=== PATIENT | male | born 1990 | race Caucasian/White ===

== ENCOUNTER 2016-11-08 14:44 | Emergency (ER) | payer SELFPAY ==
[~2016-11-08] VITALS: Ht 180.3 cm; Wt 74.0 kg
[~2016-11-08 14:44] MED LIST: IBUP800T23 PO
[2016-11-08 14:49] VITALS: BP 118/59; PULSE 56; RESP 16; TEMP 97.5; O2SAT 99
[2016-11-08] MEDS ORDERED: SODIUM CHLOR 0.9% 1000 ML INJ 1,000 ML IV SCH (16:22)
[2016-11-08] MEDS ORDERED: KETOROLAC TROMETHAMINE 30 MG/ML (IVP) VIAL IVP ONE (16:30)
[2016-11-08] MEDS ORDERED: SODIUM CHLORIDE 0.9% FLUSH 10 ML FLUSH IV FLUSH PRN (16:30)
[2016-11-08 16:44] VITALS: O2SAT 98
[2016-11-08 16:46] LABS: AUTOMATED NEUTROPHIL # 4.4 TH/MM3 (1.8-7.7); BASOPHIL % 0.6 % (0.0-2.0); EOSINOPHIL % 0.6 % (0.0-4.0); HEMATOCRIT 45.1 % (39.0-51.0); HEMO FLAGS DIFF FINAL; LYMPH % 24.9 % (9.0-44.0); LYMPHOCYTE # 1.6 TH/MM3 (1.0-4.8); MEAN CELL VOLUME 83.7 FL (80.0-100.0); MEAN CORPUSCULAR HEMOGLOBIN 27.7 PG (27.0-34.0); MEAN CORPUSCULAR HGB CONC 33.1 % (32.0-36.0); MONO % 7.4 % (0.0-8.0); NEUT % 66.5 % (16.0-70.0); PLATELET COUNT 282 TH/MM3 (150-450); RED BLOOD COUNT 5.38 MIL/MM3 (4.50-5.90); WHITE BLOOD COUNT 6.5 TH/MM3 (4.0-11.0)
[2016-11-08 16:47] VITALS: BP 113/59; PULSE 51; RESP 18; O2SAT 100
[2016-11-08 16:48] LABS: BLOOD, URINE NEG (NEG); GLUCOSE,URINE NEG (NEG); KETONE, URINE 15 mg/dL (NEG); NITRITE,URINE NEG (NEG)
[2016-11-08 16:53] LABS: URINE COLOR YELLOW (YELLW/STRAW)
[2016-11-08 16:54] LABS: COMMENT (UR) CULT NOT INDICATED; CULTURE IF INDICATED CULT NOT INDICATED; MUCUS URINE MOD /lpf (OCC); RBC, URINE 0-3 /hpf (0-3); SQUAMOUS EPITHELIAL CELL URINE 0-5 /hpf (0-5); WBC, URINE 0-2 /hpf (0-5)
[2016-11-08 17:03] LABS: CHLORIDE 105 MEQ/L (98-107); SODIUM (NA) 138 MEQ/L (136-145)
[2016-11-08] MEDS ORDERED: IOHEXOL 350 MG/ML 10 ML VIAL (for RAD DIAG) IV ONE (17:04)
[2016-11-08 17:06] LABS: BICARBONATE 27.6 MEQ/L (21.0-32.0); POTASSIUM 4.1 MEQ/L (3.5-5.1)
[2016-11-08 17:07] LABS: BLOOD UREA NITROGEN 16 MG/DL (7-18)
[2016-11-08 17:09] LABS: ALT (GPT) 33 U/L (12-78); AST (GOT) 28 U/L (15-37)
[2016-11-08 17:10] LABS: GLOMERULAR FILTRATION RATE 82 ML/MIN (>89)
[2016-11-08 17:11] LABS: TOTAL BILIRUBIN ADULT 0.9 MG/DL (0.2-1.0)
[2016-11-08 17:12] LABS: ALKALINE PHOSPHATASE 73 U/L (45-117)
--- NOTE | 2016-11-08 17:15 | RADRPT ---
EXAM DATE/TIME: 11/08/2016 17:00 [place] COMPARISON: No previous studies available for comparison. INDICATIONS : Right lower abdominal pain with nausea. IV CONTRAST: 95 cc Omnipaque 350 (iohexol) IV ORAL CONTRAST: No oral contrast ingested. RADIATION DOSE: 6.60 CTDIvol (mGy) MEDICAL HISTORY : None SURGICAL HISTORY : Appendectomy. ENCOUNTER: Initial ACUITY: 1 day PAIN SCALE: 5/10 LOCATION: Right lower quadrant TECHNIQUE: Volumetric scanning of the abdomen and pelvis was performed. Using automated exposure control and ad justment of the mA and/or kV according to patient size, radiation dose was kept as low as reasonably achievable to obtain optimal diagnostic quality images. DICOM format image data is available electro nically for review and comparison. FINDINGS: LOWER LUNGS: The visualized lower lungs are clear. LIVER: Homogeneous density without lesion. There is no dilation of the biliary tree. No calcified gallston es. SPLEEN: Normal size without lesion. PANCREAS: Within normal limits. KIDNEYS: Normal in size and shape. There is no mass, stone or hydronephrosis. ADRENAL GLANDS: Within normal limits. VASCULAR: There is no aortic aneurysm. BOWEL/MESENTERY: The stomach, small bowel, and colon demonstrate no acute abnormality. There is no free intraperitone al air or fluid. ABDOMINAL WALL: Within normal limits. RETROPERITONEUM: There is no lymphadenopathy. BLADDER: No wall thickening or mass. REPRODUCTIVE: Within normal limits. INGUINAL: There is no lymphadenopathy or hernia. MUSCULOSKELETAL: Within normal limits for patient age. CONCLUSION: 1. No acute findings. Postoperative appendectomy. Teodoro Berry MD on November 08, 2016 at 17:10 Board Certified Radiologist. This report was verified electronically.
[2016-11-08 17:19] LABS: ANION GAP 6 MEQ/L (5-15)
--- NOTE | 2016-11-08 17:35 | PD ---
HPI Chief Complaint: Abdominal Pain Time Seen by Provider: 16:18 Travel History International Travel<30 days: No Contact w/Intl Traveler<30days: No Traveled to known affect area: No History of Present Illness HPI Patient is a 25-year-old male who comes in complaining of lower abdominal pain with burning on urination. He says it started this morning. He says it was so severe, he was sent home from work. He went to [facility], who told him to come to the emergency Department to look for kidney stone. He denies fever or chills. He has not taken anything for the pain. He denies any penile discharge. He denies any testicular pain or swelling. He is sexually active, but uses condoms. He denies any contact with STDs. [facility] Past Medical History Medical History: Denies Significant Hx Diminished Hearing: No Past Surgical History Appendectomy: Yes Oral Surgery: Yes (WISDOM TEETH) Social History Alcohol Use: Yes (MIX DRINKS, BEER - SOCIALLY) Tobacco Use: No Substance Use: No Allergies-Medications (Allergen,Severity, Reaction): Coded Allergies: No Known Allergies (Unverified , 11/08/16) Reported Meds & Prescriptions Reported Meds & Active Scripts Active No Active Prescriptions or Reported Medications Review of Systems Except as stated in HPI: all other systems reviewed are Neg General / Constitutional: No: Fever, Chills HENT: No: Headaches, Lightheadedness Cardiovascular: No: Chest Pain or Discomfort Respiratory: No: Shortness of Breath Gastrointestinal: Positive: Abdominal Pain, No: Nausea, Vomiting Genitourinary: Positive: Dysuria, No: Hematuria, Discharge Skin: No Rash, No Change in Pigmentation Neurologic: No: Weakness Physical Exam Narrative GENERAL: Awake and alert, in no acute distress. SKIN: Focused skin assessment warm/dry. HEAD: Atraumatic. Normocephalic. EYES: Pupils equal and round. No scleral icterus. ENT: Mucous membranes pink and moist. NECK: Trachea midline. No JVD. CARDIOVASCULAR: Regular rate and rhythm. No murmur appreciated. RESPIRATORY: No accessory muscle use. Clear to auscultation. Breath sounds equal bilaterally. GASTROINTESTINAL: Abdomen soft, nondistended. Tender to palpation of the suprapubic area. No CVA tenderness. MUSCULOSKELETAL: No obvious deformities. No clubbing. No cyanosis. No edema. NEUROLOGICAL: Awake and alert. No obvious cranial nerve deficits. Motor grossly within normal limits. Normal speech. PSYCHIATRIC: Appropriate mood and affect; insight and judgment normal. Data Data Last Documented VS Vital Signs Date Time Temp Pulse Resp B/P Pulse Ox O2 Delivery O2 Flow Rate FiO2 11/08/16 16:47 51 18 113/59 100 Room Air 11/08/16 14:49 97.5 Orders Complete Blood Count With Diff (11/08/16 16:22) Comprehensive Metabolic Panel (11/08/16 16:22) Urinalysis - C+S If Indicated (11/08/16 16:22) Ua Includes Microscopic (11/08/16 16:22) Ct Abd/Pel W Iv Contrast(Rout) (11/08/16 16:22) Iv Access Insert/Monitor (11/08/16 16:22) Ecg Monitoring (11/08/16 16:22) Oximetry (11/08/16 16:22) Sodium Chlor 0.9% 1000 Ml Inj (Ns 1000 M (11/08/16 16:22) Sodium Chloride 0.9% Flush (Ns Flush) (11/08/16 16:30) Ketorolac Inj (Toradol Inj) (11/08/16 16:30) Iohexol 350 Inj (Omnipaque 350 Inj) (11/08/16 17:04) Labs Laboratory Tests Test 11/08/16 11/08/16 16:36 16:39 Urine Color YELLOW Urine Turbidity CLEAR Urine pH 6.0 Urine Specific [place] 1.031 Urine Protein NEG mg/dL Urine Glucose (UA) NEG mg/dL Urine Ketones 15 mg/dL Urine Occult Blood NEG Urine Nitrite NEG Urine Bilirubin NEG Urine Leukocyte Esterase NEG Urine RBC 0-3 /hpf Urine WBC 0-2 /hpf Urine Squamous Epithelial 0-5 /hpf Cells Urine Mucus MOD /lpf Microscopic Urinalysis Comment CULT NOT INDICATED White Blood Count 6.5 TH/MM3 Red Blood Count 5.38 MIL/MM3 Hemoglobin 14.9 GM/DL Hematocrit 45.1 % Mean Corpuscular Volume 83.7 FL Mean Corpuscular Hemoglobin 27.7 PG Mean Corpuscular Hemoglobin 33.1 % Concent Red Cell Distribution Width 13.0 % Platelet Count 282 TH/MM3 Mean Platelet Volume 7.9 FL Neutrophils (%) (Auto) 66.5 % Lymphocytes (%) (Auto) 24.9 % Monocytes (%) (Auto) 7.4 % Eosinophils (%) (Auto) 0.6 % Basophils (%) (Auto) 0.6 % Neutrophils # (Auto) 4.4 TH/MM3 Lymphocytes # (Auto) 1.6 TH/MM3 Monocytes # (Auto) 0.5 TH/MM3 Eosinophils # (Auto) 0.0 TH/MM3 Basophils # (Auto) 0.0 TH/MM3 CBC Comment DIFF FINAL Differential Comment Sodium Level 138 MEQ/L Potassium Level 4.1 MEQ/L Chloride Level 105 MEQ/L Carbon Dioxide Level 27.6 MEQ/L Anion Gap 6 MEQ/L Blood Urea Nitrogen 16 MG/DL Creatinine 1.10 MG/DL Estimat Glomerular Filtration 82 ML/MIN Rate Random Glucose 82 MG/DL Calcium Level 9.3 MG/DL Total Bilirubin 0.9 MG/DL Aspartate Amino Transf 28 U/L (AST/SGOT) Alanine Aminotransferase 33 U/L (ALT/SGPT) Alkaline Phosphatase 73 U/L Total Protein 8.0 GM/DL Albumin 4.3 GM/DL [facility] Medical Decision Making Medical Screen Exam Complete: Yes Emergency Medical Condition: Yes Differential Diagnosis UTI versus pyelonephritis versus renal stone Narrative Course Patient is a 25-year-old male comes in complaining of abdominal pain with dysuria. Exam shows suprapubic tenderness. IV established, labs sent. Labs show no acute abnormalities. Urinalysis is negative for infection. CT abdomen and pelvis performed shows no acute abnormalities. Last 24 hours Impressions Abdomen/Pelvis CT 11/08/16 1622 Signed Impressions: Service Date/Time: Tuesday, November 08, 2016 17:00 - CONCLUSION: 1. No acute findings. Postoperative appendectomy. Teodoro Berry MD Patient offered testing for gonorrhea and Chlamydia. However he declines at this time and does not want to provide another urine sample. I advised that this could be a cause of his symptoms, and he should be tested. He still declines. Advised follow-up with a primary care doctor. Advised to return to the ED as debris worsening symptoms. Advised drink plenty of fluids and take ibuprofen as needed for pain. Diagnosis Primary Impression: Dysuria Referrals: [facility] call for appointment Patient Instructions: Abdominal Pain (ED), Dysuria (ED), General Instructions Additional Instructions: Drink plenty of fluids. Take ibuprofen as needed for pain. Follow-up with a primary care doctor. Return to the emergency department as needed for any worsening symptoms. Scripts No Active Prescriptions or Reported Meds Disposition: 01 DISCHARGE HOME Condition: Stable Betsy Moore MD Nov 08, 2016 17:35
== END 2016-11-08 17:53 | disposition home or self-care (01) ==
LOC: PHED 14:44
DX: R30.0 Dysuria (principal)
CPT/HCPCS: 74177; 80053; 81001; 85025; 96374; 99285; J1885; J7030; Q9967